=== PATIENT | female | born 1995 | race Caucasian/White ===

== ENCOUNTER → 2016-11-28 | Outpatient (REF) | payer BC ==
[2016-11-28 18:46] LABS: CALCIUM OXALATE CRYSTALS SMALL
== END ==
LOC: M SMT 17:02
PROVIDERS: ATTEND Nurse Practitioner Women's Health
DX: N13.2 Hydronephrosis with renal and ureteral calculous obstruction (principal)

== ENCOUNTER → 2017-01-25 | Outpatient (REF) | payer BC | LOC: M SFHCWAGY 16:45 | PROVIDERS: ATTEND Nurse Practitioner Women's Health | DX: N93.0 Postcoital and contact bleeding (principal) ==

== ENCOUNTER → 2017-01-31 | Outpatient (REF) | payer BC | LOC: M SFHCADAM 15:34 | PROVIDERS: ATTEND Physician Assistant | DX: E53.8 Deficiency of other specified B group vitamins (principal) ==

== ENCOUNTER → 2017-08-07 | Outpatient (REF) | payer BC ==
[2017-08-07 20:14] LABS: MEAN CORPUSCULAR HEMOGLOBIN 33.1 pg (27.0-33.0); MEAN CORPUSCULAR HGB CONC 35.6 g/dl (32.0-36.5); RED CELL DISTRIBUTION WIDTH 11.6 % (11.5-14.5); WHITE BLOOD COUNT 8.6 K/mm3 (4.0-10.0)
[2017-08-07 20:27] LABS: FOLATE 11.7 NG/ML; VITAMIN B12 LEVEL 495 PG/ML
[2017-08-07 20:48] LABS: ALBUMIN 3.9 GM/DL (3.2-5.2); ALBUMIN/GLOBULIN RATIO 1.03 (1.00-1.93); ALKALINE PHOSPHATASE 63 U/L (45-117); ALT/SGPT 21 U/L (12-78); ANION GAP 10 MEQ/L (8-16); AST/SGOT 16 U/L (15-37); BILIRUBIN,TOTAL 0.2 MG/DL (0.2-1.0); BLOOD UREA NITROGEN 20 MG/DL (7-18); CARBON DIOXIDE LEVEL 24 MEQ/L (21-32); CHLORIDE LEVEL 108 MEQ/L (98-107); CREATININE FOR GFR 1.16 MG/DL (0.55-1.02); GLUCOSE, FASTING 86 MG/DL (70-105); POTASSIUM SERUM 4.3 MEQ/L (3.5-5.1); SODIUM LEVEL 142 MEQ/L (136-145); TOTAL PROTEIN 7.7 GM/DL (6.4-8.2)
== END ==
LOC: M SFHCADAM 15:53
PROVIDERS: ATTEND Physician Assistant
DX: R20.2 Paresthesia of skin (principal); E53.8 Deficiency of other specified B group vitamins

== ENCOUNTER → 2017-10-17 | Outpatient (REF) | payer BC | LOC: M SFHCWAGY 12:05 | PROVIDERS: ATTEND Nurse Practitioner Women's Health | DX: Z30.41 Encounter for surveillance of contraceptive pills (principal) ==

== ENCOUNTER → 2017-11-19 | Outpatient (REF) | payer BC | LOC: M LAB REF 18:57 | DX: J02.9 Acute pharyngitis, unspecified (principal) ==

== ENCOUNTER → 2018-01-06 | Outpatient (CLI) | payer BC | LOC: M ADAMS 12:59 | DX: M25.561 Pain in right knee (principal) ==

== ENCOUNTER → 2018-01-10 | Outpatient (CLI) | payer BC | LOC: M ADAMS 09:04 | DX: S30.0XXA Contusion of lower back and pelvis, initial encounter (principal); X58.XXXA Exposure to other specified factors, initial encounter; Y92.89 Other specified places as the place of occurrence of the external cause | CPT/HCPCS: 72220 ==

== ENCOUNTER → 2018-02-12 | Outpatient (REF) | payer BC ==
[2018-02-12 19:48] LABS: CHLAMYDIA DNA AMPLIFICATION NEGATIVE (NEGATIVE); GC DNA AMPLIFICATION NEGATIVE (NEGATIVE)
== END ==
LOC: M SFHCWAGY 16:14
DX: Z01.411 Encounter for gynecological examination (general) (routine) with abnormal findings (principal); R85.612 Low grade squamous intraepithelial lesion on cytologic smear of anus (LGSIL)
CPT/HCPCS: 87591

== ENCOUNTER 2018-07-21 19:52 | Emergency (ER) | payer BC ==
[2018-07-21 22:22] LABS: KETONE, URINE AUTO RFX NEGATIVE (NEGATIVE); NITRITE, URINE AUTO RFX NEGATIVE (NEGATIVE); RBC, URINE AUTO RFX 20 /HPF (0-3); SPECIFIC GRAVITY UR AUTO RFX 1.003 (1.002-1.035); SQUAM EPITHELIAL CELL UR AURFX 1 /HPF (0-6)
[2018-07-21 22:40] LABS: LEUKOCYTE ESTERASE UR AUTO RFX 3+ (NEGATIVE); WBC, URINE AUTO RFX TNTC /HPF (0-3)
== END 2018-07-21 23:36 | disposition home or self-care (01) ==
LOC: M ED 19:52
DX: N30.00 Acute cystitis without hematuria (principal); N20.0 Calculus of kidney; Z87.442 Personal history of urinary calculi; Z88.0 Allergy status to penicillin; Z88.2 Allergy status to sulfonamides; Z79.899 Other long term (current) drug therapy
CPT/HCPCS: 74176

== ENCOUNTER → 2019-01-13 | Outpatient (REF) | payer BC ==
[~2019-01-13] MED LIST: CIPR-249 PO; KURV0.15; PYRI1TAB5 PO
[2019-01-13 20:56] LABS: CHLAMYDIA DNA AMPLIFICATION NEGATIVE (NEGATIVE); GC DNA AMPLIFICATION NEGATIVE (NEGATIVE)
== END ==
LOC: M SFHCWAGY 17:00
PROVIDERS: ATTEND Nurse Practitioner Women's Health
DX: Z11.3 Encounter for screening for infections with a predominantly sexual mode of transmission (principal); N93.0 Postcoital and contact bleeding; N94.6 Dysmenorrhea, unspecified; N92.0 Excessive and frequent menstruation with regular cycle

== ENCOUNTER → 2019-03-12 | Outpatient (REF) | payer BC ==
[2019-03-12 20:57] LABS: CHLAMYDIA DNA AMPLIFICATION NEGATIVE (NEGATIVE); GC DNA AMPLIFICATION NEGATIVE (NEGATIVE)
== END ==
LOC: M SFHCWAGY 13:20
PROVIDERS: ATTEND Nurse Practitioner Women's Health
DX: Z12.4 Encounter for screening for malignant neoplasm of cervix (principal); Z11.3 Encounter for screening for infections with a predominantly sexual mode of transmission; N87.0 Mild cervical dysplasia
CPT/HCPCS: 87661; G0123

== ENCOUNTER → 2019-08-07 | Outpatient (REF) | payer BC ==
[2019-08-07 12:57] LABS: FOLATE 10.6 NG/ML
== END ==
LOC: M SFHCADAM 09:07
PROVIDERS: ATTEND Physician Assistant
DX: E53.8 Deficiency of other specified B group vitamins (principal)

== ENCOUNTER → 2019-08-20 | Outpatient (CLI) | payer BC ==
--- NOTE | 2019-08-20 13:40 | REP ---
Chest x-ray: Two views. History: cough. Comparison study: No comparison chest x-ray. . Findings: The lungs are well inflated and free of infiltrate. The pleural angles are sharp. The heart size is normal. Pulmonary vasculature is not increased. No significant bony abnormality is seen. Impression: Negative chest x-ray. Electronically Signed by Bairon Farrar MD 08/20/2019 01:32 P
== END ==
LOC: M WUC 09:00
PROVIDERS: ATTEND Physician Assistant
DX: R05 Cough (principal); R07.89 Other chest pain

== ENCOUNTER 2019-09-23 11:21 | Emergency (ER) | payer BC ==
[~2019-09-23] VITALS: Ht 160 cm; Wt 74.6 kg
[2019-09-23] MEDS ORDERED: B-122500 PO (11:26)
[2019-09-23 13:29] LABS: BASO % 0.4 % (0.0-1.0); EOS % 0.5 % (0.0-3.0); HEMATOCRIT 43.7 % (36.0-47.0); HEMOGLOBIN 14.4 g/dl (12.0-15.5); LYMPH % 35.2 % (24.0-44.0); MEAN CORPUSCULAR HEMOGLOBIN 31.5 pg (27.0-33.0); MEAN CORPUSCULAR VOLUME 95.6 fl (80.0-96.0); MONO # 0.6 10^3/uL (0.0-0.8); MONO % 6.7 % (0.0-5.0); NEUTROPHILS # 4.8 10^3/uL (1.5-8.5); NEUTROPHILS % 56.8 % (36.0-66.0); PLATELET COUNT, AUTOMATED 226 10^3/uL (150-450); RED BLOOD COUNT 4.57 10^6/uL (4.00-5.40); WHITE BLOOD COUNT 8.4 10^3/uL (4.0-10.0)
--- NOTE | 2019-09-23 13:51 | REP ---
Chest x-ray: Two views. History: Right-sided chest pain . Comparison study: Comparison study August 20, 2019. . Findings: The lungs are well inflated and free of infiltrate. The pleural angles are sharp. The heart size is normal. Pulmonary vasculature is not increased. No significant bony abnormality is seen. Impression: Negative chest x-ray. Electronically Signed by Bairon Farrar MD 09/23/2019 01:42 P
[2019-09-23 14:00] LABS: ALBUMIN 3.6 GM/DL (3.2-5.2); ALT/SGPT 17 U/L (12-78); BILIRUBIN,TOTAL 0.2 MG/DL (0.2-1.0); BLOOD UREA NITROGEN 17 MG/DL (7-18); C REACTIVE PROTEIN QUANTITATIV 1.63 MG/DL (0.00-0.30); CALCIUM LEVEL 9.2 MG/DL (8.5-10.1); CARBON DIOXIDE LEVEL 25 MEQ/L (21-32); CHLORIDE LEVEL 107 MEQ/L (98-107); CK-MB VALUE MASS 2.2 NG/ML (<3.6); CPK CREATINE PHOSPHOKINASE 117 U/L (26-192); CREATININE FOR GFR 0.78 MG/DL (0.55-1.30); GAMMA GLUTAMYLTRANSPEPTIDASE 17 U/L (5-55); GLOMERULAR FILTRATION RATE > 60.0 (>60); GLUCOSE, FASTING 89 MG/DL (70-100); MB/CK RELATIVE INDEX 1.88 (< OR =4); POTASSIUM SERUM 4.1 MEQ/L (3.5-5.1); SODIUM LEVEL 139 MEQ/L (136-145); TOTAL PROTEIN 7.7 GM/DL (6.4-8.2); TROPONIN I < 0.02 NG/ML (< 0.10)
--- NOTE | 2019-09-23 14:25 | REP ---
Right upper quadrant sonography: History: Right-sided chest pain. Question gallbladder versus kidney. History of kidney stones. Comparison CT study July 21, 2018. Sonographic findings: Scanning through right upper quadrant of the abdomen demonstrates normal sized thin-walled gallbladder without evidence of stone or polyp. Common bile duct is normal measuring 0.4 cm in greatest diameter. No focal hepatic lesion is seen. Pancreas is unremarkable. There is no evidence of ascites. The right kidney measures 10.2 x 4.9 x 4.6 cm. There is a 0.8 cm cyst at the upper pole of the right kidney. Impression: Negative right upper quadrant sonography. Electronically Signed by Bairon Farrar MD 09/23/2019 04:53 P
[2019-09-23] MEDS ORDERED: ISOVUE-370 76% 100ML VIAL (Q9967) As Ordered ONE (15:01)
--- NOTE | 2019-09-23 15:41 | REP ---
CT pulmonary angiogram: With IV contrast. History: Positive D-dimer. Intermittent chest pain. On oral contraceptives. Comparison studies: No comparison CT study. Contrast dose: 75 mL of Isovue [address] technique: Helical scanning is acquired and overlapping 1.5 mm and contiguous 3 mm axial images are reformatted. In addition, maximum intensity projection and multiplanar re-formation images are generated in sagittal and coronal imaging projections. CT pulmonary angiographic findings: There is good opacification of the pulmonary arterial tree. Maximum intensity projection images and axial and MPR images show no evidence of vessel cutoff or filling defect to suggest pulmonary embolism. 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 The great vessel origins are otherwise unremarkable. There is no evidence of aortic dissection or aneurysm. No pleural or pericardial effusion is seen. The lung davila are clear. No adrenal lesion is seen. The visualized upper abdominal structures are unremarkable except for some mild fatty infiltration in the liver. Impression: No CT evidence of pulmonary embolus. No acute cardiopulmonary disease. Bovine arch variant. Electronically Signed by Bairon Farrar MD 09/23/2019 04:54 P
[2019-09-23 16:20] VITALS: BP 119/61
--- NOTE | 2019-09-23 20:18 | ECGEPIP ---
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
== END 2019-09-23 16:22 | disposition home or self-care (01) ==
LOC: M ED 11:21
DX: R07.9 Chest pain, unspecified (principal); Z88.0 Allergy status to penicillin; Z88.2 Allergy status to sulfonamides; F12.10 Cannabis abuse, uncomplicated
CPT/HCPCS: 71046; 71275; 76705; 80053; 82550; 82553; 82977; 84443; 84484; 85025; 85379; 86140; 93005; 99284; Q9967

== ENCOUNTER → 2020-03-15 | Outpatient (CLI) | payer BC ==
[~2020-03-15] MED LIST changes: +B-122500 PO
[2020-03-15 19:27] LABS: CHLAMYDIA DNA AMPLIFICATION NEGATIVE (NEGATIVE); GC DNA AMPLIFICATION NEGATIVE (NEGATIVE)
== END ==
LOC: M PLALAB 15:04
PROVIDERS: ATTEND Nurse Practitioner Women's Health
DX: Z01.419 Encounter for gynecological examination (general) (routine) without abnormal findings (principal)
CPT/HCPCS: 36415; 87624; 87661; G0123

== ENCOUNTER → 2020-09-20 | Outpatient (REF) | payer BC ==
[2020-09-20 17:19] LABS: HEMATOCRIT 41.8 % (36.0-47.0); HEMOGLOBIN 13.7 g/dl (12.0-15.5); MEAN CORPUSCULAR HEMOGLOBIN 30.7 pg (27.0-33.0); MEAN CORPUSCULAR HGB CONC 32.8 g/dl (32.0-36.5); MEAN CORPUSCULAR VOLUME 93.7 fl (80.0-96.0); PLATELET COUNT, AUTOMATED 241 10^3/uL (150-450); RED BLOOD COUNT 4.46 10^6/uL (4.00-5.40); WHITE BLOOD COUNT 9.5 10^3/uL (4.0-10.0)
== END ==
LOC: M SFHCADAM 14:01
PROVIDERS: ATTEND Physician Assistant
DX: E53.8 Deficiency of other specified B group vitamins (principal)

== ENCOUNTER → 2020-11-07 | Outpatient (CLI) | payer SELFPAY | LOC: M LABSMTC 12:47 | PROVIDERS: ATTEND Pediatrics | DX: Z20.828 Contact with and (suspected) exposure to other viral communicable diseases (principal) ==

== ENCOUNTER → 2021-01-12 | Outpatient (REF) | payer BC ==
[2021-01-12 16:37] LABS: BASO # 0.1 10^3/uL (0.0-0.2); BASO % 0.6 % (0.0-1.0); EOS % 0.5 % (0.0-3.0); HEMATOCRIT 41.1 % (36.0-47.0); HEMOGLOBIN 13.3 g/dl (12.0-15.5); LYMPH # 3.5 10^3/uL (1.5-5.0); LYMPH % 40.6 % (24.0-44.0); MEAN CORPUSCULAR HEMOGLOBIN 30.3 pg (27.0-33.0); MEAN CORPUSCULAR HGB CONC 32.4 g/dl (32.0-36.5); MEAN CORPUSCULAR VOLUME 93.6 fl (80.0-96.0); MONO # 0.6 10^3/uL (0.0-0.8); MONO % 6.8 % (2.0-8.0); NEUTROPHILS # 4.5 10^3/uL (1.5-8.5); NEUTROPHILS % 51.3 % (36.0-66.0); PLATELET COUNT, AUTOMATED 220 10^3/uL (150-450); RED BLOOD COUNT 4.39 10^6/uL (4.00-5.40); WHITE BLOOD COUNT 8.7 10^3/uL (4.0-10.0)
[2021-01-12 17:11] LABS: ALBUMIN 3.6 GM/DL (3.2-5.2); ALT/SGPT 15 U/L (12-78); BILIRUBIN,TOTAL 0.2 MG/DL (0.2-1.0); BLOOD UREA NITROGEN 14 MG/DL (7-18); CALCIUM LEVEL 9.6 MG/DL (8.5-10.1); CARBON DIOXIDE LEVEL 26 MEQ/L (21-32); CHLORIDE LEVEL 106 MEQ/L (98-107); CREATININE FOR GFR 0.85 MG/DL (0.55-1.30); GLOMERULAR FILTRATION RATE > 60.0 (>60); GLUCOSE, FASTING 84 MG/DL (70-100); POTASSIUM SERUM 4.4 MEQ/L (3.5-5.1); SODIUM LEVEL 137 MEQ/L (136-145); TOTAL PROTEIN 7.6 GM/DL (6.4-8.2)
== END ==
LOC: M SFHCADAM 15:00
PROVIDERS: ATTEND Physician Assistant
DX: R19.7 Diarrhea, unspecified (principal); R14.0 Abdominal distension (gaseous)

== ENCOUNTER 2021-02-19 14:50 | Emergency (ER) | payer BC ==
[~2021-02-19] VITALS: Ht 160 cm; Wt 79.0 kg
[2021-02-19] MEDS ORDERED: OMEP-218 (15:08)
[2021-02-19] MEDS ORDERED: ACETAMINOPHEN 325 MG TAB PO ONE (16:25)
[2021-02-19] MEDS ORDERED: predniSONE 20 MG TAB PO ONE (16:25)
[2021-02-19] MEDS ORDERED: FAMOTIDINE 20 MG TAB PO ONE (16:25)
[2021-02-19] MEDS ORDERED: BENA25CA4 PO (16:27)
[2021-02-19] MEDS ORDERED: PRED20TA PO (16:32)
[2021-02-19 16:38] VITALS: BP 125/80
== END 2021-02-19 16:39 | disposition home or self-care (01) ==
LOC: M ED 14:50
DX: R50.83 Postvaccination fever (principal); R21 Rash and other nonspecific skin eruption; M79.10 Myalgia, unspecified site; T50.B95A Adverse effect of other viral vaccines, initial encounter; K21.9 Gastro-esophageal reflux disease without esophagitis; Z88.0 Allergy status to penicillin; Z88.2 Allergy status to sulfonamides

== ENCOUNTER → 2021-05-30 | Outpatient (REF) | payer BC ==
[~2021-05-30] MED LIST changes: +BENA25CA4 PO; +OMEP-218; +PRED20TA PO
[2021-05-30 15:30] LABS: GC DNA AMPLIFICATION NEGATIVE (NEGATIVE)
== END ==
LOC: M SFHCWAGY 13:02
PROVIDERS: ATTEND Nurse Practitioner Women's Health
DX: Z11.3 Encounter for screening for infections with a predominantly sexual mode of transmission (principal); Z12.4 Encounter for screening for malignant neoplasm of cervix

== ENCOUNTER → 2022-06-12 | Outpatient (REF) ==
[~2022-06-12] MED LIST changes: +OMEP-173; -OMEP-218
== END ==
LOC: M EMP 06:43
PROVIDERS: ATTEND Family Medicine
DX: Z11.52 Encounter for screening for COVID-19 (principal)

== ENCOUNTER → 2022-09-05 | Outpatient (REF) | payer BC ==
[2022-09-05 17:00] LABS: BASO % 0.4 % (0.0-1.0); EOS # 0.1 10^3/uL (0.0-0.5); EOS % 0.5 % (0.0-3.0); HEMATOCRIT 39.4 % (36.0-47.0); HEMOGLOBIN 13.1 g/dl (12.0-15.5); LYMPH # 3.5 10^3/uL (1.5-5.0); LYMPH % 37.8 % (24.0-44.0); MEAN CORPUSCULAR HEMOGLOBIN 30.2 pg (27.0-33.0); MEAN CORPUSCULAR HGB CONC 33.2 g/dl (32.0-36.5); MEAN CORPUSCULAR VOLUME 90.8 fl (80.0-96.0); MONO # 0.7 10^3/uL (0.0-0.8); MONO % 7.8 % (2.0-8.0); NEUTROPHILS % 53.3 % (36.0-66.0); PLATELET COUNT, AUTOMATED 253 10^3/uL (150-450); RED BLOOD COUNT 4.34 10^6/uL (4.00-5.40); WHITE BLOOD COUNT 9.3 10^3/uL (4.0-10.0)
[2022-09-05 17:40] LABS: ALBUMIN 3.6 GM/DL (3.2-5.2); ALT/SGPT 18 U/L (12-78); BILIRUBIN,TOTAL 0.3 MG/DL (0.2-1.0); BLOOD UREA NITROGEN 12 MG/DL (7-18); C REACTIVE PROTEIN QUANTITATIV 2.48 MG/DL (0.00-0.30); CARBON DIOXIDE LEVEL 24 MEQ/L (21-32); CHLORIDE LEVEL 106 MEQ/L (98-107); CREATININE FOR GFR 1.03 MG/DL (0.55-1.30); FREE T4 1.05 NG/DL (0.76-1.46); GLOMERULAR FILTRATION RATE > 60.0 (>60); GLUCOSE, FASTING 81 MG/DL (70-100); POTASSIUM SERUM 4.2 MEQ/L (3.5-5.1); RHEUMATOID FACTOR QUANT < 10.0 IU/ML (<15.0); SODIUM LEVEL 137 MEQ/L (136-145); TOTAL PROTEIN 7.6 GM/DL (6.4-8.2)
[2022-09-05 17:52] LABS: VITAMIN B12 LEVEL 426 PG/ML
[2022-09-05 17:53] LABS: TOTAL 25(OH) VITAMIN D 28.6 NG/ML (30.0-100.0)
[2022-09-05 17:56] LABS: ERYTHROCYTE SEDIMENTATION RATE 13 mm/hr (0-20)
[2022-09-07 23:12] LABS: ANA (HEP2) Negative (.)
== END ==
LOC: M SFHCADAM 14:45
PROVIDERS: ATTEND Physician Assistant
DX: M25.541 Pain in joints of right hand (principal); M25.542 Pain in joints of left hand; M25.559 Pain in unspecified hip; R59.0 Localized enlarged lymph nodes; E53.8 Deficiency of other specified B group vitamins

== ENCOUNTER → 2022-09-17 | Outpatient (CLI) | payer BC | LOC: M WHC 09:00 | PROVIDERS: ATTEND Physician Assistant | DX: R59.0 Localized enlarged lymph nodes (principal) ==

== ENCOUNTER → 2022-10-15 | Outpatient (REF) | payer BC | LOC: M SFHCADAM 10:23 | PROVIDERS: ATTEND Physician Assistant | DX: R79.82 Elevated C-reactive protein (CRP) (principal) ==

== ENCOUNTER → 2022-11-05 | Outpatient (REF) | LOC: M LABSMTC 11:23 | PROVIDERS: ATTEND Family Medicine | DX: Z11.52 Encounter for screening for COVID-19 (principal) ==

== ENCOUNTER → 2023-01-14 | Outpatient (CLI) | payer BC, SELFPAY ==
[~2023-01-14] MED LIST changes: +DESO1TAB27; +EXCETAB32 PO
== END ==
LOC: M LABSMTC 11:01
PROVIDERS: ATTEND Anesthesiology
DX: Z01.812 Encounter for preprocedural laboratory examination (principal)

== ENCOUNTER 2023-03-01 09:56 | Day surgery (SDC) | payer BC, SELFPAY ==
[~2023-03-01] VITALS: Ht 160 cm; Wt 76.6 kg
[~2023-03-01 09:56] MED LIST changes: +DOCU100C16 PO; +NS 1,000 ML IV ONE
[2023-03-01] MEDS ORDERED: fentaNYL 100 MCG/2 ML INJECTION As Ordered ONE (12:32)
[2023-03-01] MEDS ORDERED: LIDOCAINE 2% 100MG/5ML SDV (FOR ANES.) As Ordered ONE (12:53)
[2023-03-01] MEDS ORDERED: propofoL 200 MG/20 ML VIAL As Ordered ONE (12:53)
[2023-03-01 13:16] VITALS: BP 110/70
== END 2023-03-01 13:18 | disposition home or self-care (01) ==
LOC: M OPP 09:56
PROVIDERS: ATTEND Internal Medicine Gastroenterology
DX: K21.00 Gastro-esophageal reflux disease with esophagitis, without bleeding (principal); K22.89 Other specified disease of esophagus; K29.70 Gastritis, unspecified, without bleeding; R14.0 Abdominal distension (gaseous)
CPT/HCPCS: 43239; 88305; J3010

== ENCOUNTER → 2023-05-02 | Outpatient (CLI) | payer BC ==
[~2023-05-02] MED LIST changes: -NS 1,000 ML IV ONE
== END ==
LOC: M WHC 12:55
PROVIDERS: ATTEND Physician Assistant
DX: E04.1 Nontoxic single thyroid nodule (principal)

== ENCOUNTER → 2023-07-09 | Outpatient (CLI) | payer BC ==
[~2023-07-09] MED LIST changes: +LIDOCAINE 1% MDV 20ML VIAL As Ordered ONE
[2023-07-09 09:17] VITALS: TEMP 98.2
[2023-07-09 10:05] VITALS: BP 131/89; O2SAT 99
== END ==
LOC: M IRPRO 09:04
PROVIDERS: ATTEND Otolaryngology
DX: E04.1 Nontoxic single thyroid nodule (principal)

== ENCOUNTER → 2023-12-30 | Outpatient (CLI) | payer BC ==
[~2023-12-30] MED LIST changes: -LIDOCAINE 1% MDV 20ML VIAL As Ordered ONE
== END ==
LOC: M RAD 14:54
PROVIDERS: ATTEND Otolaryngology
DX: E04.1 Nontoxic single thyroid nodule (principal)

== ENCOUNTER → 2024-06-09 | Outpatient (REF) | payer BC ==
[2024-06-11 14:47] LABS: HPV APTIMA Not Detected (Not Detected)
== END ==
LOC: M SFHCWAGY 17:31
PROVIDERS: ATTEND Nurse Practitioner Family
DX: Z12.4 Encounter for screening for malignant neoplasm of cervix (principal)
CPT/HCPCS: 87624; G0123

== ENCOUNTER → 2024-09-29 | Outpatient (REF) | payer BC ==
[2024-09-29 18:21] LABS: BASO % 0.4 % (0.0-1.0); EOS % 0.2 % (0.0-3.0); HEMATOCRIT 40.4 % (36.0-47.0); HEMOGLOBIN 12.9 g/dl (12.0-15.5); LYMPH # 3.6 10^3/uL (1.5-5.0); LYMPH % 39.2 % (24.0-44.0); MEAN CORPUSCULAR HEMOGLOBIN 28.5 pg (27.0-33.0); MEAN CORPUSCULAR HGB CONC 31.9 g/dl (32.0-36.5); MEAN CORPUSCULAR VOLUME 89.4 fl (80.0-96.0); MONO # 0.6 10^3/uL (0.0-0.8); MONO % 6.6 % (2.0-8.0); NEUTROPHILS # 4.9 10^3/uL (1.5-8.5); NEUTROPHILS % 53.4 % (36.0-66.0); PLATELET COUNT, AUTOMATED 249 10^3/uL (150-450); RED BLOOD COUNT 4.52 10^6/uL (4.00-5.40); WHITE BLOOD COUNT 9.3 10^3/uL (4.0-10.0)
[2024-09-29 18:36] LABS: ERYTHROCYTE SEDIMENTATION RATE 16 mm/hr (0-20)
[2024-09-29 18:52] LABS: URIC ACID 5.2 MG/DL (3.1-7.8)
[2024-09-29 18:55] LABS: ALBUMIN 3.6 G/DL (3.2-5.2); ALKALINE PHOSPHATASE 65 U/L (35-104); ALT/SGPT 11 U/L (7.0-40); AST/SGOT < 8 U/L (<34); BILIRUBIN,TOTAL 0.4 MG/DL (0.3-1.2); BLOOD UREA NITROGEN 12 MG/DL (9-23); CALCIUM LEVEL 9.4 MG/DL (8.5-10.1); CARBON DIOXIDE LEVEL 24 MMOL/L (20-31); CHLORIDE LEVEL 107 MMOL/L (98-107); GLOMERULAR FILTRATION RATE > 60.0 (>60); GLUCOSE, FASTING 88 MG/DL (60-100); RHEUMATOID FACTOR QUANT < 3.5 IU/ML (<14); SODIUM LEVEL 138 MMOL/L (136-145); TOTAL PROTEIN 7.8 G/DL (5.7-8.2)
[2024-09-29 18:57] LABS: TOTAL 25(OH) VITAMIN D 23.8 NG/ML (20.0-100.0)
[2024-10-02 20:12] LABS: CYCLIC CITRULLINATED PEPTIDE < 16 UNITS (<20)
== END ==
LOC: M SFHCADAM 14:11
PROVIDERS: ATTEND Physician Assistant
DX: R19.5 Other fecal abnormalities (principal); R10.9 Unspecified abdominal pain; M25.541 Pain in joints of right hand; M25.542 Pain in joints of left hand

== ENCOUNTER → 2024-09-30 | Outpatient (REF) | payer BC | LOC: M SFHCADAM 17:02 | PROVIDERS: ATTEND Physician Assistant | DX: R19.5 Other fecal abnormalities (principal); R10.9 Unspecified abdominal pain ==

== ENCOUNTER → 2024-10-30 | Outpatient (REF) | payer BC ==
[2024-10-30 19:33] LABS: AMYLASE 54 U/L (30-118)
[2024-10-30 19:34] LABS: LIPASE 38 U/L (12-53)
== END ==
LOC: M SFHCADAM 14:43
PROVIDERS: ATTEND Physician Assistant
DX: K21.9 Gastro-esophageal reflux disease without esophagitis (principal); R14.0 Abdominal distension (gaseous); R10.9 Unspecified abdominal pain; R19.7 Diarrhea, unspecified; Z28.21 Immunization not carried out because of patient refusal

== ENCOUNTER → 2024-12-25 | Outpatient (REF) | payer BC | LOC: M LABDRWAD 13:12 | PROVIDERS: ATTEND Nurse Practitioner Family | DX: R19.7 Diarrhea, unspecified (principal); R14.3 Flatulence; R10.30 Lower abdominal pain, unspecified ==

== ENCOUNTER → 2025-01-04 | Outpatient (CLI) | payer BC ==
[~2025-01-04] MED LIST changes: +ISOVUE-370 76% 100ML VIAL As Ordered ONE
== END ==
LOC: M RAD 09:05
PROVIDERS: ATTEND Physician Assistant
DX: R10.2 Pelvic and perineal pain (principal); R19.7 Diarrhea, unspecified; R14.0 Abdominal distension (gaseous); K76.89 Other specified diseases of liver; N28.1 Cyst of kidney, acquired
CPT/HCPCS: 74177; Q9967

== ENCOUNTER → 2025-01-07 | Outpatient (CLI) | payer BC ==
[~2025-01-07] MED LIST changes: -ISOVUE-370 76% 100ML VIAL As Ordered ONE
== END ==
LOC: M RAD 14:46
PROVIDERS: ATTEND Physician Assistant
DX: N28.89 Other specified disorders of kidney and ureter (principal)

== ENCOUNTER → 2025-01-07 | Outpatient (CLI) | payer BC | LOC: M RAD 14:44 | PROVIDERS: ATTEND Otolaryngology | DX: E04.1 Nontoxic single thyroid nodule (principal) ==

== ENCOUNTER → 2025-01-12 | Outpatient (REF) | payer BC ==
[2025-01-14 18:42] LABS: ANA SCREEN, IFA NEGATIVE (NEGATIVE)
== END ==
LOC: M SFHCADAM 14:57
PROVIDERS: ATTEND Physician Assistant
DX: M25.541 Pain in joints of right hand (principal)

== ENCOUNTER → 2025-01-21 | Outpatient (CLI) | payer BC | LOC: M ADAMS 14:49 | PROVIDERS: ATTEND Physician Assistant | DX: G89.29 Other chronic pain (principal); M25.521 Pain in right elbow; M25.522 Pain in left elbow; R79.82 Elevated C-reactive protein (CRP) ==

== ENCOUNTER → 2025-08-10 | Outpatient (REF) | payer BC ==
[2025-08-10 18:46] LABS: APPEARANCE, URINE CLEAR (CLEAR); BACTERIA, URINE AUTO 1+ (NEGATIVE); BILIRUBIN, URINE AUTO NEGATIVE (NEGATIVE); BLOOD, URINE BLOOD 2+ (NEGATIVE); GLUCOSE, URINE (UA) AUTO NEGATIVE (NEGATIVE); KETONE, URINE AUTO NEGATIVE (NEGATIVE); LEUKOCYTE ESTERASE, URINE AUTO 2+ (NEGATIVE); NITRITE, URINE AUTO NEGATIVE (NEGATIVE); PROTEIN, URINE AUTO NEGATIVE (NEGATIVE); RBC, URINE AUTO 1 /HPF (0-3); SPECIFIC GRAVITY URINE AUTO 1.005 (1.002-1.035); SQUAMOUS EPITHELIAL CELL UR AU 1 /HPF (0-6); UROBILINOGEN, URINE AUTO 0.2 mg/dL (0.0-2.0); WBC, URINE AUTO 2 /HPF (0-3)
== END ==
LOC: M LAB REF 17:18
PROVIDERS: ATTEND Physician Assistant Medical
DX: N39.0 Urinary tract infection, site not specified (principal)

== ENCOUNTER 2025-09-09 01:20 | Emergency (ER) | payer BC ==
[~2025-09-09] VITALS: Ht 160 cm; Wt 72.7 kg
[2025-09-09 01:42] LABS: PLATELET COUNT, AUTOMATED 232 10^3/uL (150-450)
[2025-09-09 02:07] LABS: HCG, SERUM QUALITATIVE NEGATIVE (NEGATIVE)
[2025-09-09 02:09] LABS: CALCIUM LEVEL 9.1 MG/DL (8.5-10.1); CARBON DIOXIDE LEVEL 24 MMOL/L (20-31); CHLORIDE LEVEL 107 MMOL/L (98-107); CREATININE FOR GFR 1.11 MG/DL (0.55-1.30); GLOMERULAR FILTRATION RATE 69.4 (>60); POTASSIUM SERUM 3.8 MMOL/L (3.5-5.1); SODIUM LEVEL 143 MMOL/L (136-145)
[2025-09-09 02:41] LABS: KETONE, URINE AUTO RFX NEGATIVE (NEGATIVE); MUCUS, URINE RFX SMALL (NEGATIVE); NITRITE, URINE AUTO RFX NEGATIVE (NEGATIVE); RBC, URINE AUTO RFX 1 /HPF (0-3); SQUAM EPITHELIAL CELL UR AURFX 2 /HPF (0-6); WBC, URINE AUTO RFX 1 /HPF (0-3)
[2025-09-09 02:42] LABS: LEUKOCYTE ESTERASE UR AUTO RFX TRACE (NEGATIVE)
[2025-09-09] MEDS ORDERED: KETOROLAC 30 MG/ML 1 ML VIAL IV ONE (04:20)
[2025-09-09] MEDS: ONDANSETRON 4MG/2ML VIAL IV ONE ×2 (04:24)
[2025-09-09] MEDS: KETOROLAC 30 MG/ML 1 ML VIAL IV ONE (04:24)
[2025-09-09] MEDS ORDERED: TAMS-18 PO (06:30)
[2025-09-09] MEDS ORDERED: KETO-204 PO (06:30)
[2025-09-09] MEDS ORDERED: ONDA-282 PO (06:30)
[2025-09-09] MEDS: TAMSULOSIN 0.4 MG CAP PO ONE (06:54)
[2025-09-09] MEDS: OXYCODONE/APAP 5MG/325MG(HOME DOSE PACK) PO ONE (06:54)
[2025-09-09 06:55] VITALS: BP 117/74; TEMP 98.7; O2SAT 98
== END 2025-09-09 07:01 | disposition home or self-care (01) ==
LOC: M ED 01:20
DX: N20.1 Calculus of ureter (principal); F10.10 Alcohol abuse, uncomplicated; Z87.442 Personal history of urinary calculi; Z79.82 Long term (current) use of aspirin; Z79.899 Other long term (current) drug therapy; Z88.0 Allergy status to penicillin; Z88.2 Allergy status to sulfonamides; Z91.040 Latex allergy status
CPT/HCPCS: 74176; 80048; 81001; 84703; 85027; 87086; 96374; 99284; J1885; J2405

== ENCOUNTER → 2025-09-15 | Outpatient (CLI) | payer BC ==
[~2025-09-15] MED LIST changes: +KETO-204 PO; +ONDA-282 PO; +TAMS-18 PO
[2025-09-15 17:25] LABS: APPEARANCE, URINE CLEAR (CLEAR); BACTERIA, URINE AUTO NEGATIVE (NEGATIVE); BILIRUBIN, URINE AUTO NEGATIVE (NEGATIVE); BLOOD, URINE BLOOD 1+ (NEGATIVE); GLUCOSE, URINE (UA) AUTO NEGATIVE (NEGATIVE); KETONE, URINE AUTO NEGATIVE (NEGATIVE); LEUKOCYTE ESTERASE, URINE AUTO 1+ (NEGATIVE); MUCUS, URINE SMALL (NEGATIVE); NITRITE, URINE AUTO NEGATIVE (NEGATIVE); PROTEIN, URINE AUTO NEGATIVE (NEGATIVE); RBC, URINE AUTO 2 /HPF (0-3); SPECIFIC GRAVITY URINE AUTO 1.016 (1.002-1.035); SQUAMOUS EPITHELIAL CELL UR AU 1 /HPF (0-6); UROBILINOGEN, URINE AUTO 0.2 mg/dL (0.0-2.0); WBC, URINE AUTO 11 /HPF (0-3)
== END ==
LOC: M PLAIMG 15:42
PROVIDERS: ATTEND Nurse Practitioner Family
DX: N20.0 Calculus of kidney (principal)

== ENCOUNTER → 2025-09-20 | Outpatient (REF) | payer BC | LOC: M SMT 16:43 | PROVIDERS: ATTEND Nurse Practitioner Family | DX: N20.0 Calculus of kidney (principal) ==